=== PATIENT | male | born 1990 ===

== ENCOUNTER → 2021-06-19 10:00 | Outpatient (CLI) | payer OTHER, SELFPAY ==
[2021-06-19 14:32] LABS: COVID19 -Nasal RAPID Negative (Negative)
== END ==
PROVIDERS: Visit Provider Family Medicine Sleep Medicine
DX: Z20.822 Contact with and (suspected) exposure to COVID-19 (principal)
CPT/HCPCS: 87635; C9803

== ENCOUNTER 2021-06-20 06:36 | Day surgery (SDC) | payer OTHER, SELFPAY ==
[2021-06-20] MEDS: OXYMETAZOLINE NASAL SPRAY 15 ML 2 SPRAYS NASAL ×2 (07:37→09:45)
[2021-06-20 07:39] VITALS: BP 125/84; PULSE 57; RESP 16; TEMP 36.4; O2SAT 98; BMI 22.8
[2021-06-20] MEDS: LACTATED RINGERS 1,000 ML 42 ML IV ×2 (08:01→10:33)
--- NOTE | 2021-06-20 09:04 | PM.PREOP ---
Pre-operative Note Interval Note History & Physical reviewed/Exam performed by Physician: Yes Changes to H&P: No
--- NOTE | 2021-06-20 09:05 | PM.HP.1 ---
History of Present Illness History of Present Illness Date Patient Seen: 06/20/21 Chief complaint: Facial pain, CRS Narrative: 30-year-old male last seen in clinic 03/27/2021 for facial pain and pressure and recurrent sinus infections, presents for endoscopic sinus surgery and inferior turbinate reduction. Left maxillary mucous retention cyst that seems to be symptomatic, as well as nasal airway obstruction that should respond to inferior turbinate reduction. No interval health changes, sleep study was negative in the interim. No septoplasty is planned today. Patient History Medical History Pericarditis Pneumothorax Right hand fracture Surgical History History of hand surgery Status post phlebectomy Family & Social History Social History: household members significant other Tobacco & Substance use: Tobacco type cigarettes Smoking Status Former smoker alcohol intake frequency a few times a month Substance Use Type does not use Meds Home Medications and Allergies Home Medications Medication Instructions Recorded Confirmed Type ibuprofen 800 mg tablet 800 mg PO PRN PRN 06/20/21 06/20/21 History Allergies Allergy/AdvReac Type Severity Reaction Status Date / Time No Known Drug Allergies Allergy Verified 06/20/21 07:32 Review of Systems Review of Systems Narrative: Negative except as listed in the HPI Exam Vital Signs (past 8 hours): - 06/20/21 07:39 Temperature 97.6 F Pulse Rate 57 L Respiratory Rate 16 Blood Pressure 125/84 Pulse Oximetry 98 Oxygen Delivery Method Room Air Narrative Exam Narrative: Well-developed well-nourished male in no acute distress heart regular rate and rhythm without murmur, lungs clear to auscultation bilaterally Assessment & Plan Assessment & Plan narrative: Assessment: Chronic maxillary and ethmoid sinusitis, left maxillary symptomatic sinus cyst, facial pain, nasal airway obstruction, inferior turbinate hypertrophy Plan: Following discussion of the material risks benefits complications and alternatives, patient elected to proceed with bilateral maxillary antrostomy, left maxillary tissue removal, bilateral anterior ethmoidectomy, and bilateral inferior turbinate reduction as outpatient. Time Spent With Patient Critical Care time: I spent a total of [] minutes of critical care time on this patient's care today; this time is exclusive of procedural time.
--- NOTE | 2021-06-20 09:08 | PM.OP.1 ---
Operative Date/Time/Diagnoses Date of procedure: 06/20/21 Time of procedure: 11:26 Pre-op diagnosis: Chronic maxillary and ethmoid sinusitis, facial pain, left maxillary symptomatic cyst, nasal airway obstruction, inferior turbinate hypertrophy Post-op diagnosis: same (with nasal polyposis) Procedure & Clinicians Procedure: 1.Left endoscopic maxillary antrostomy with tissue removal 2. Right endoscopic maxillary antrostomy 3. Bilateral endoscopic anterior ethmoidectomies 4. Bilateral inferior turbinate reduction via intramural cautery Same procedure as scheduled: Yes Indications: 30-year-old male with the above diagnoses incompletely managed with medical therapy presents for the above procedures. Following discussion of the material risks benefits complications and alternatives he elected to proceed. Surgeon: Jonathan So Click Yes if Unassisted: Yes Anesthesia Type: General and Local Operative Notes Findings: Cyst marsupialized/partially resected left inferior maxillary sinus, INflamed maxillary and ethmoid mucosa with small polyps visible RIGHT>LEFT, right greater than left inferior turbinate hypertrophy. Atypical anatomy with lateral maxillary os bilaterally, difficult exposure. Estimated Blood Loss (mL): 250 Procedure in detail: Following identification and confirmation of consent, the patient was brought to the operating room suite and placed in the supine position. General endotracheal anesthesia was administered. Cotton with 4% lidocaine and Afrin on pledgets was placed into the nose bilaterally for several minutes. Following sterile prep and drape, the packing was removed and under endoscopic guidance I infiltrated the posterior and anterior superior insertion of each middle turbinate. The LEFT middle turbinate was slightly medialized and the backbiting forceps performed uncinectomy along with the microdebrider. A wide Maxillary antrostomy was created by extending the natural os posteriorly and inferiorly and cyst was marsupialized/partially resected from within the maxillary sinus with curved microdebrider. The ethmoid bulla was resected with the microdebrider. Access was also difficult on the RIGHT due to atypical anatomy and lateral maxillary os, eventually the uncinectomy and wide maxillary antrostomy performed, with the ethmoid bulla resected with the microdebrider. Hemostasis with Afrin and lidocaine on cotton. Sponge counts were correct and he was extubated in the operating room and taken to recovery room in stable condition without no complication. Complications: none Post-operative Condition: stable Disposition: same day surgery Plan for aftercare: Nasal saline every hour while awake, begin irrigations t.i.d. tomorrow. AFrin for bleeding. Tylenol alternating with Advil for pain control, oxycodone for breakthrough pain. Elevate head of bed, no nose blowing, no straining for 2 weeks. Follow-up in 1 week
[2021-06-20] MEDS: LIDOCAINE 4% SOLN 50 ML 20 ML TOP (09:45)
--- NOTE | 2021-06-20 09:47 | SUR.OPER ---
Supine on padded OR bed, head on pillow, arms padded and tucked at sides, legs uncrossed, safety belt at thigh, tape over blanket over lower legs. Pillow placed under bilateral knees, gel pad placed under heels.
[2021-06-20] MEDS: LIDOCAINE 1% W/EPI 20 ML INJ (10:29)
[2021-06-20 11:35] VITALS: BP 149/83; PULSE 96; RESP 12; TEMP 36.6; O2SAT 98
[2021-06-20 11:40] VITALS: BP 161/100; PULSE 92; RESP 11; O2SAT 100
[2021-06-20] MEDS: ONDANSETRON 4 MG/2 ML INJ IV (11:43)
[2021-06-20 11:45] VITALS: BP 165/106; PULSE 83; RESP 10; O2SAT 100
[2021-06-20] MEDS: MEPERIDINE 50 MG/ML INJ 12.5 MG IV (11:48)
[2021-06-20 12:00] VITALS: BP 132/100; PULSE 80; RESP 12; O2SAT 100
[2021-06-20] MEDS: ACETAMINOPHEN 325 MG TABLET 650 MG PO (12:00)
[2021-06-20] MEDS: OXYCODONE IR 5 MG TABLET PO (12:00)
[2021-06-20 12:05] VITALS: BP 118/91; PULSE 79; RESP 15; O2SAT 99
== END 2021-06-20 12:35 | disposition home or self-care (01) ==
PROVIDERS: Referring Provider Otolaryngology; Visit Provider Otolaryngology
PROC: (CPT 31231; principal; 2021-06-20 08:30)
DX: J32.0 Chronic maxillary sinusitis (principal); J32.2 Chronic ethmoidal sinusitis; J98.8 Other specified respiratory disorders; J34.3 Hypertrophy of nasal turbinates; M27.40 Unspecified cyst of jaw; J33.9 Nasal polyp, unspecified
CPT/HCPCS: 31254; 31267; 30802; J1100; J2175; J2405; J2704; J3010

== ENCOUNTER 2021-09-11 19:26 | Emergency (ER) | payer SELFPAY ==
[2021-09-11 19:37] VITALS: BP 162/108; PULSE 120; RESP 16; TEMP 36.7; O2SAT 98; BMI 22.6
--- NOTE | 2021-09-11 21:41 | ED_ITS ---
HPI - Psych General Chief Complaint: Psychiatric Symptoms Stated Complaint: mental health eval. Time Seen by Provider: 09/11/21 20:00 Mode of arrival: Ambulatory History of Present Illness HPI Narrative: 30-year-old male nonsmoker with noncontributory medical history arrives with his significant other who is concerned about some abnormal behavior. She states that he has not been sleeping and has had a poor appetite and has not had much to eat or drink. She states that he is had grand ideas of starting [employer] and has been spending more money than normal. The patient states he feels as good as he ever has and states that people just do not understand what he is trying to do for them. He denies any suicidal or homicidal ideation. Denies any street drugs or alcohol use. He denies any chest pain or shortness of breath nor nausea, vomiting or diarrhea. He states that many years ago he had some issues with depression but no longer feels that way. He does not take any medications. Related Data Home Medications Medication Instructions Recorded Confirmed ibuprofen 800 mg tablet 800 mg PO PRN PRN Pain (Scale 06/20/21 06/20/21 Score 4-6) Allergies Allergy/AdvReac Type Severity Reaction Status Date / Time No Known Drug Allergies Allergy Verified 09/11/21 19:59 Review of Systems Review of Systems Narrative: GENERAL: Denies chills, fatigue, malaise, fever, sweats. HEENT: Denies sinus pain, ear pain, sore throat, difficulty swallowing, dizziness. RESPIRATORY: Denies dyspnea, cough, wheezing, hemoptysis, sputum. CARDIOVASCULAR: Denies chest pain, palpitations, orthopnea, edema, GASTROINTESTINAL: Denies nausea, vomiting, abdominal pain, diarrhea, constipation, melena. : Denies dysuria, frequency, incontinence, hematuria, urinary retention. MUSCULOSKELETAL: denies weakness, joint pain, or bony pain SKIN: Denies rash, skin lesions, or other NEUROLOGIC: Denies weakness, headache, numbness, change in speech, confusion, seizures, incoordination. PSYCHIATRIC: No concerning psychosocial issues. 12 point review of systems is negative except for those stated above Patient History Medical History Pericarditis Pneumothorax Right hand fracture Surgical History History of hand surgery Status post phlebectomy Social History household members: significant other Smoking Status: Former smoker Smoking Status: Former smoker alcohol intake frequency: a few times a month Substance Use Type: does not use Exam Narrative Exam Narrative: GENERAL: [30] year old patient appears stated age. Well-developed patient, in no obvious distress. He does have rapid, if not pressured speech and explanations of grandiose ideas HEAD: Atraumatic. Normocephalic. EYES: Pupils equal round and reactive. Extraocular motions intact. No scleral icterus. No injection or drainage. ENT: Nose without bleeding, purulent drainage. Throat without erythema, tonsillar hypertrophy or exudate. Airway patent. NECK: Trachea midline. Non tender CARDIOVASCULAR: Regular rate and rhythm without murmurs, gallops, or rubs. RESPIRATORY: Clear to auscultation. Breath sounds equal bilaterally. No wheezes, rales, or rhonchi. GASTROINTESTINAL: Abdomen soft, non-tender, nondistended. EXTREMITIES: No edema or joint tenderness. BACK: Nontender without deformity or crepitance. No flank tenderness. NEURO: AOx3. SKIN: No rash or erythema of visible areas Initial Vital Signs Initial Vital Signs: Vital Signs Temperature 98.1 F 09/11/21 19:37 Pulse Rate 120 H 09/11/21 19:37 Respiratory Rate 16 09/11/21 19:37 Blood Pressure 162/108 H 09/11/21 19:37 Pulse Oximetry 98 09/11/21 19:37 Oxygen Delivery Method 09/11/21 19:37 Course Orders Ordered: ED Orders 09/11/21 20:01 Complete Blood Count AUTO DIFF Stat Comprehensive Metabolic Panel Stat Ethanol (ETOH) Stat Urine Drug Screen, Rapid Stat EKG-12 Lead Stat Vital Signs Vital signs: Vital Signs - 8 hr 09/11/21 19:37 Temperature 98.1 F Pulse Rate 120 H Respiratory Rate 16 Blood Pressure 162/108 H Pulse Oximetry 98 Oxygen Delivery Method Room Air MDM - Psych MDM Narrative Medical decision making narrative: Patient is not suicidal or homicidal and shows no evidence of grave disability. He is well-groomed with stable vitals and shows no sign of malnutrition. He does demonstrate elements consistent with a possible manic episode such as pressured speech and grandiose ideas. I discussed with him how concerned his girlfriend is and encouraged him to allow us to obtain a consultation with our vp digital marketing social media and crm. He was initially open to this concept but the moment I explained what it entailed he became very frustrated and wanted to leave. I made multiple attempts to explain to him my concern that he could be developing symptoms consistent with bipolar disorder but at this time he demonstrates capacity to make his own decisions and, again is not suicidal, homicidal or gravely disabled. He understands that he may return immediately for any change of heart and he states that he appreciates our efforts and he will return if he feels like he needs to. Questions have been answered to his apparent satisfaction Discharge Plan Departure Patient Disposition: Left Against Medical Advice Clinical Impression: Manic behavior Prescriptions: No Action ibuprofen 800 mg tablet 800 mg PO PRN PRN (Reason: Pain (Scale Score 4-6)) Rx Instructions: tx pericarditis Stand Alone Forms: Against Medical Advice
--- NOTE | 2021-09-11 22:31 | PC.NURSE ---
Patient walked out of department 0 after evaluation with provider. Patient declined to finish evaluation in ER.
== END 2021-09-11 22:20 | disposition left against medical advice (07) ==
PROVIDERS: Emergency Provider Emergency Medicine
DX: F30.10 Manic episode without psychotic symptoms, unspecified (principal)
CPT/HCPCS: 99281